=== PATIENT | female | born 1960 | race Caucasian/White ===

== ENCOUNTER 2017-04-20 05:55 | Emergency (ER) | payer OTHER ==
[~2017-04-20] VITALS: Ht 162.6 cm; Wt 80.0 kg
[~2017-04-20 05:55] MED LIST: ASPI325T PO; FAMO20 PO; LOVA20TA PO; [UNRECOGNIZED DRUG - CODE] PO
[2017-04-20 05:56] VITALS: BP 171/88; PULSE 82; RESP 16; TEMP 98; O2SAT 98
--- NOTE | 2017-04-20 06:24 | PD ---
HPI Chief Complaint: Back/ Neck Pain or Injury Time Seen by Provider: 06:20 Travel History International Travel<30 days: No Contact w/Intl Traveler<30days: No Traveled to known affect area: No History of Present Illness HPI Patient comes in complaining of low back muscle spasm that began yesterday while helping out at a baby shower. Patient denies any trauma, heavy lifting, loss or change in bowel or bladder, numbness or tingling anywhere, IV drug use, fevers, chest pain, shortness of breath, or radiation of pain. Patient states she stays in one spot left lateral aspect of her upper lumbar. Patient states she has this happen occasionally and is usually able get it under control with taking a couple Advil along with using heat pack. Patient states she tried this yesterday with no improvement of symptoms. Patient states she took one of her sisters Flexeril last night with no improvement of her symptoms. Patient states the spasm keep her awake all night. Denies anything making it worse. PFSH Past Medical History Medical History: Denies Significant Hx Diminished Hearing: No Tetanus Vaccination: > 5 Years Influenza Vaccination: No ?: Not Menopausal: Yes : 4 Para: 2 Miscarriage: 1 Past Surgical History Surgical History: No Previous Surgery Hysterectomy: Yes (1998) Social History Alcohol Use: No Tobacco Use: Yes (1/2 pack) Substance Use: No Allergies-Medications (Allergen,Severity, Reaction): Coded Allergies: No Known Allergies (Verified , 04/20/17) Reported Meds & Prescriptions Reported Meds & Active Scripts Active Robaxin (Methocarbamol) 500 Mg Tab 500 Mg PO Q8HR PRN Lovastatin 20 Mg Tab 20 Mg PO HS Reported Pepcid 20 Mg Tab (Famotidine) 20 Mg Tab 20 Mg PO DAILY Aspirin 325 mg (Aspirin) 325 Mg Tab 325 Mg PO DAILY 2 tabs as needed once a day Tension Headache Relief (Acetaminophen-Caffeine) 1 Tab Tab 2 Tab PO BID Review of Systems Except as stated in HPI: all other systems reviewed are Neg Physical Exam Narrative GENERAL: Well-developed, overly nourished, in no acute distress, and non-ill appearing. SKIN: Focused skin assessment warm and dry. HEAD: Atraumatic. Normocephalic. EYES: Pupils equal and round. EOMI. No scleral icterus. No injection or drainage. ENT: No nasal bleeding or discharge. Mucous membranes pink and moist. NECK: Trachea midline. Supple. No nuclear rigidity. CARDIOVASCULAR: No pedal edema. RESPIRATORY: No accessory muscle use. No respiratory distress. MUSCULOSKELETAL: No obvious deformities. No clubbing. No cyanosis. No edema. Full range of motion. No chest crepitus or midline lumbar or thoracic spine. Patient reports point tenderness left lateral lumbar perivertebral spinal muscles upper lumbar spine. NEUROLOGICAL: Awake and alert. No obvious cranial nerve deficits. Motor grossly within normal limits. Normal speech. PSYCHIATRIC: Appropriate mood and affect; insight and judgment normal. Data Data Last Documented VS Vital Signs Date Time Temp Pulse Resp B/P Pulse Ox O2 Delivery O2 Flow Rate FiO2 04/20/17 06:07 20 04/20/17 05:56 98.0 82 171/88 98 Room Air Orders Methocarbamol (Robaxin) (04/20/17 06:30) [facility] Medical Decision Making Medical Screen Exam Complete: Yes Emergency Medical Condition: Yes Differential Diagnosis Fracture, spasm, contusion, strain, other Narrative Course The patient presented complaining of back muscle spasm pain. There was no history of recent fall or trauma. There was no evidence to support genitourinary etiology. There is also no evidence to suggest vascular pathology such as AAA dissection. No fevers or other evidence to suspect infectious processes, abscess, osteomyelitis etc. The patients neurological exam is normal with normal motor and sensory. There is no saddle paresthesias reported and no bowel or bladder incontinence or retention. I suspect the pain is mechanical in nature. Clinical suspicion, plan of care and management was discussed with the patient. The patient was instructed to follow up with their health care provider. The patient was also instructed to return if the pain worsened, changed, or developed weakness or bowel or bladder trouble. The patient agreed with plan. Patient in no obvious distress upon re-evaluation. Patient was asked if they wanted to speak to my attending, which the patient did not wish to do at this time. Any questions/concerns in reference to patient diagnosis/condition discussed and clarified prior to patient's discharge. Reinforced sheer importance of close follow up with patient's primary physician or primary care clinic. Instructed patient to return to ED immediately, if symptoms return/ worsen. Pt showed understanding of above instructions. Further instructions and recommendations were detailed in discharge paperwork. Pt ambulated without difficulty out of ED at discharge. Diagnosis Primary Impression: Muscle spasm Patient Instructions: General Instructions, Muscle Spasm (ED) Additional Instructions: Follow-up with your primary care physician in 3-5 days for evaluation. Take all medication as prescribed. Use [id number] Tylenol and/or ibuprofen as needed for pain control. Follow instructions on the packaging. Return to the emergency department if symptoms get worse. Med/Other Pt SpecificInfo: Prescription(s) given Scripts Methocarbamol (Robaxin)500 Mg [id number] Mg PO Q8HR PRN (MUSCLE SPASM) #14 TAB Ref 0 Prov:Mae Chavarria MD 04/20/17 Disposition: 01 DISCHARGE HOME Condition: Stable Reese Hughes Apr 20, 2017 06:24
[2017-04-20] MEDS ORDERED: ROBA500T PO (06:25)
[2017-04-20] MEDS ORDERED: METHOCARBAMOL 500 MG TAB PO ONE (06:30)
== END 2017-04-20 06:31 | disposition home or self-care (01) ==
LOC: NEPD 05:55
DX: M62.838 Other muscle spasm (principal)
CPT/HCPCS: 99283

== ENCOUNTER 2017-04-23 18:15 | Emergency (ER) | payer OTHER ==
[~2017-04-23] VITALS: Ht 162.6 cm; Wt 78.0 kg
[~2017-04-23 18:15] MED LIST changes: +ROBA500T PO
[2017-04-23 18:17] VITALS: BP 173/80; PULSE 118; RESP 24; TEMP 97.8; O2SAT 98
--- NOTE | 2017-04-23 18:21 | PD ---
Physical Exam Narrative 56 y/o female here for evaluation of back pain. Seen here on 04/20 for evaluation of this issue but symptoms have worsened. Vital signs reviewed. Seen at triage desk. Awaiting bed placement. Data Data Last Documented VS Vital Signs Date Time Temp Pulse Resp B/P Pulse Ox O2 Delivery O2 Flow Rate FiO2 04/23/17 18:17 97.8 118 24 173/80 98 Room Air [facility] [place] Medical Record Reviewed: Yes Supervised Visit with JIE: Eric Newman Apr 23, 2017 18:21
--- NOTE | 2017-04-23 18:31 | PD ---
HPI . lower back pain x 3 days Chief Complaint: Musculoskeletal Complaint Time Seen by Provider: 18:29 Travel History International Travel<30 days: No Contact w/Intl Traveler<30days: No Traveled to known affect area: No History of Present Illness HPI 56-year-old female here with complaints of worsening lower back pain. Patient was recently here on April 20 with similar complaints. Apparently she was helping out at a baby shower and think she may have pulled something. She has been taking the Robaxin without much relief. Patient says that her pain is now wrapping around both sides of her lumbar spine in the paraspinal musculature. She rates the pain as 8/10. She denies any bowel or bladder dysfunction. She has no saddle anesthesia. She denies any recent injury or fall. She has no other complaints at this time. [facility] Past Medical History Diminished Hearing: No Menopausal: Yes : 4 Para: 2 Miscarriage: 1 Past Surgical History Hysterectomy: Yes (1998) Social History Alcohol Use: No Tobacco Use: Yes (1/2 pack) Substance Use: No Allergies-Medications (Allergen,Severity, Reaction): Coded Allergies: No Known Allergies (Verified , 04/23/17) Reported Meds & Prescriptions Reported Meds & Active Scripts Active Tramadol (Tramadol HCl) 50 Mg Tab 50 Mg PO Q8H PRN Robaxin (Methocarbamol) 500 Mg Tab 500 Mg PO Q8HR PRN Lovastatin 20 Mg Tab 20 Mg PO HS Reported Pepcid 20 Mg Tab (Famotidine) 20 Mg Tab 20 Mg PO DAILY Aspirin 325 mg (Aspirin) 325 Mg Tab 325 Mg PO DAILY 2 tabs as needed once a day Tension Headache Relief (Acetaminophen-Caffeine) 1 Tab Tab 2 Tab PO BID Review of Systems General / Constitutional: No: Fever Eyes: No: Visual changes HENT: No: Headaches Cardiovascular: No: Chest Pain or Discomfort Respiratory: No: Shortness of Breath Gastrointestinal: No: Abdominal Pain Genitourinary: No: Dysuria Musculoskeletal: Positive: Pain (lower back pain ) Skin: No Rash Neurologic: No: Weakness Psychiatric: No: Depression Endocrine: No: Polydipsia Hematologic/Lymphatic: No: Easy Bruising Physical Exam Narrative GENERAL: AAO x 3, no acute distress, Well-nourished, well-developed patient. SKIN: Warm and dry. No visible rashes or bruising. HEAD: Normocephalic and atraumatic. EYES: No scleral icterus. No injection or drainage. ENT: No nasal drainage noted. Mucous membranes pink. Airway patent. NECK: Supple, trachea midline. No JVD. CARDIOVASCULAR: Regular rate and rhythm without murmurs, gallops, or rubs. RESPIRATORY: Breath sounds equal bilaterally. No accessory muscle use. No rhonchi or rales. GASTROINTESTINAL: Abdomen soft, non-tender, nondistended. EXTREMITIES: No cyanosis or edema. BACK: Nontender without obvious deformity. some slight tenderness to left side paraspinal muscle lumbar NEURO: CN II-12 intact, mobile lounge driver strength normal b/l, UE and LE 5/5, no focal deficits, heel walk test normal PSYCH: AAO x 3, normal affect. Data Data Last Documented VS Vital Signs Date Time Temp Pulse Resp B/P Pulse Ox O2 Delivery O2 Flow Rate FiO2 04/23/17 18:17 97.8 118 24 173/80 98 Room Air Orders Orphenadrine Inj (Norflex Inj) (04/23/17 18:45) Ketorolac Inj (Toradol Inj) (04/23/17 18:45) Spine, Lumbar Comp W/Obliq (04/23/17 18:36) Urinalysis - C+S If Indicated (04/23/17 18:57) Tramadol (Ultram) (04/23/17 19:45) Labs Laboratory Tests Test 04/23/17 19:08 Urine Color YELLOW Urine Turbidity HAZY Urine pH 5.0 Urine Specific [place] 1.015 Urine Protein NEG mg/dL Urine Glucose (UA) NEG mg/dL Urine Ketones NEG mg/dL Urine Occult Blood SMALL Urine Nitrite NEG Urine Bilirubin NEG Urine Urobilinogen LESS THAN 2.0 MG/DL Urine Leukocyte Esterase NEG Urine RBC 1 /hpf Urine WBC 1 /hpf Urine Squamous Epithelial 4 /hpf Cells Urine Mucus FEW /lpf Microscopic Urinalysis Comment CULT NOT INDICATED MDM Medical Decision Making Medical Screen Exam Complete: Yes Emergency Medical Condition: Yes Medical Record Reviewed: Yes Differential Diagnosis lumbar strain, less likely spinal fracture, less likely cauda equina Narrative Course 56 yr old female here with c/o lower back pain that is worsening. I know this patient from the [facility] and she does not complain about many things. She is in tears from her pain. I will check an xray as she does report pain deep within her spine. R/O fracture. UA also ordered. Her HR is slightly elevated and likely related to her pain and anxiety from this pain. We will follow it through her visit. I have discussed the case with Virgil Hughes PA-C, who will determine her disposition. Scripts Tramadol 50 Mg Tab50 Mg PO Q8H PRN (PAIN GREATER THAN 7) #7 TAB Ref 0 Prov:Carolyne Field DO 04/23/17 Methocarbamol (Robaxin)500 Mg [id number] Mg PO Q8HR PRN (MUSCLE SPASM) #14 TAB Ref 0 Prov:Carolyne Field DO 04/23/17 Condition: Stable Lillian Jean Apr 23, 2017 18:31
[2017-04-23] MEDS ORDERED: KETOROLAC TROMETHAMINE 60 MG/2 ML (IM) VIAL IM ONE (18:45)
[2017-04-23] MEDS ORDERED: ORPHENADRINE INJ 60 MG/2 ML AMP IM ONE (18:45)
--- NOTE | 2017-04-23 19:15 | RADRPT ---
EXAM DATE/TIME: 04/23/2017 18:59 [place] COMPARISON: No previous studies available for comparison. INDICATIONS : Low back pain with spasms, denies injury MEDICAL HISTORY : Hypertension. SURGICAL HISTORY : None. ENCOUNTER: [facility] ACUITY: 4 - 6 days PAIN SCORE: 3/10 LOCATION: Lumbar spine FINDINGS: There are five non-rib bearing vertebral bodies. The vertebral bodies are in normal alignment withou t evidence of subluxation or scoliosis. The disc spaces are maintained. The posterior elements are intact without evidence of spondylolysis. The pedicles are intact. Bony mineralization is normal. No fracture is identified. CONCLUSION: Degenerative changes are noted as above. Carlos Aquino MD on April 23, 2017 at 19:13 Board Certified Radiologist. This report was verified electronically.
[2017-04-23 19:22] LABS: BLOOD, URINE SMALL (NEG); COMMENT (UR) CULT NOT INDICATED; CULTURE IF INDICATED CULT NOT INDICATED; GLUCOSE,URINE NEG (NEG); KETONE, URINE NEG (NEG); MUCUS URINE FEW /lpf (OCC); NITRITE,URINE NEG (NEG); SQUAMOUS EPITHELIAL CELL URINE 4 /hpf (0-5); URINE COLOR YELLOW (YELLW/STRAW)
--- NOTE | 2017-04-23 19:34 | PD ---
Physical Exam Narrative Patient was signed out to me by Lillian Acosta PA-C pending x-ray and laboratory results. Please see her documentation for full H&P. Data Data Last Documented VS Vital Signs Date Time Temp Pulse Resp B/P Pulse Ox O2 Delivery O2 Flow Rate FiO2 04/23/17 18:17 97.8 118 24 173/80 98 Room Air Orders Orphenadrine Inj (Norflex Inj) (04/23/17 18:45) Ketorolac Inj (Toradol Inj) (04/23/17 18:45) Spine, Lumbar Comp W/Obliq (04/23/17 18:36) Urinalysis - C+S If Indicated (04/23/17 18:57) Tramadol (Ultram) (04/23/17 19:45) Labs Laboratory Tests Test 04/23/17 19:08 Urine Color YELLOW Urine Turbidity HAZY Urine pH 5.0 Urine Specific [place] 1.015 Urine Protein NEG mg/dL Urine Glucose (UA) NEG mg/dL Urine Ketones NEG mg/dL Urine Occult Blood SMALL Urine Nitrite NEG Urine Bilirubin NEG Urine Urobilinogen LESS THAN 2.0 MG/DL Urine Leukocyte Esterase NEG Urine RBC 1 /hpf Urine WBC 1 /hpf Urine Squamous Epithelial 4 /hpf Cells Urine Mucus FEW /lpf Microscopic Urinalysis Comment CULT NOT INDICATED MDM Supervised Visit with JIE: No Interpretation(s) Lumbar spine x-rays read by the radiologist show: Degenerative changes are noted. Narrative Course Patient in no obvious distress upon re-evaluation. All pertinent laboratory/ Radiology result(s) discussed with patient/family. Patient was asked if they wanted to speak to my attending, which the patient did not wish to do at this time. Any questions/concerns in reference to patient diagnosis/condition discussed and clarified prior to patient's discharge. Reinforced sheer importance of close follow up with patient's primary physician or primary care clinic. Instructed patient to return to ED immediately, if symptoms return/ worsen. Pt showed understanding of above instructions. Further instructions and recommendations were detailed in discharge paperwork. Pt ambulated without difficulty out of ED at discharge. Diagnosis Primary Impression: Low back pain Qualified Code: M54.5 - Acute low back pain without sciatica, unspecified back pain laterality Referrals: [facility] Patient Instructions: Acute Low Back Pain (ED), General Instructions Additional Instruction: Follow-up with your primary care physician in one to 3 days for reevaluation. Take all medication as prescribed. Return to the emergency department if symptoms get worse. Med/Other Pt SpecificInfo: Prescription(s) given Scripts Tramadol 50 Mg Tab50 Mg PO Q8H PRN (PAIN GREATER THAN 7) #7 TAB Ref 0 Prov:Carolyne Field DO 04/23/17 Methocarbamol (Robaxin)500 Mg [id number] Mg PO Q8HR PRN (MUSCLE SPASM) #14 TAB Ref 0 Prov:Carolyne Field DO 04/23/17 Disposition: 01 DISCHARGE HOME Condition: Stable Reese Hughes Apr 23, 2017 19:34
[2017-04-23] MEDS ORDERED: TRAM50TA PO (19:40)
[2017-04-23] MEDS ORDERED: ROBA500T PO (19:40)
[2017-04-23] MEDS ORDERED: traMADol HCL 50 MG TAB PO ONE (19:45)
== END 2017-04-23 20:04 | disposition home or self-care (01) ==
LOC: NEPK 18:15
DX: M54.5 Low back pain (principal)
CPT/HCPCS: 72110; 81001; 96372; 99284; J1885; J2360

== ENCOUNTER 2018-02-05 16:51 | Emergency (ER) | payer SELFPAY ==
[~2018-02-05] VITALS: Ht 162.6 cm; Wt 73.0 kg
[~2018-02-05 16:51] MED LIST changes: +TRAM50TA PO
[2018-02-05 17:09] VITALS: BP 139/72; PULSE 102; RESP 17; TEMP 98.4; O2SAT 96
--- NOTE | 2018-02-05 17:43 | PD ---
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 Patient denies any known trauma, loss or change in bowel or bladder, numbness or tingling anywhere, fevers, history of IV drug use, chest pain, shortness of breath, nausea, vomiting, or weakness. Patient reports pain radiates across her back and feels similar to previous muscle spasm. Patient reports tried taking Robaxin for this yesterday as well as the Xanax that her neighbor gave her with no improvement of symptoms. Patient has tried resting as well as alternating between heat and ice with no improvement of symptoms. Pain is worse with certain movement. Severity mild. PFSH Past Medical History Diminished Hearing: No Musculoskeletal: Yes (Back pain) Menopausal: Yes : 4 Para: 2 Miscarriage: 1 Past Surgical History Hysterectomy: Yes (1998) Social History Alcohol Use: No Tobacco Use: Yes Substance Use: No Allergies-Medications (Allergen,Severity, Reaction): Coded Allergies: No Known Allergies (Verified , 04/23/17) Reported Meds & Prescriptions Reported Meds & Active Scripts Active Mobic (Meloxicam) 7.5 Mg Tab 7.5 Mg PO DAILY 7 Days Orphenadrine CR (Orphenadrine Citrate) 100 Mg Tab 100 Mg PO Q12HR PRN Review of Systems Except as stated in HPI: all other systems reviewed are Neg Physical Exam Narrative GENERAL: Well-developed, overly nourished, in no acute distress, and non-ill appearing. SKIN: Focused skin assessment warm and dry. HEAD: Atraumatic. Normocephalic. EYES: Pupils equal and round. EOMI. No scleral icterus. No injection or drainage. ENT: No nasal bleeding or discharge. Mucous membranes pink and moist. NECK: Trachea midline. Supple. No nuclear rigidity. CARDIOVASCULAR: Dorsal pulses 2+, intact, and equal bilaterally. Capillary refill less than 2 seconds. RESPIRATORY: No accessory muscle use. No respiratory distress. GASTROINTESTINAL: Abdomen soft, non-tender, nondistended, and no guarding. Hepatic and splenic margins not palpable. No pulsatile mass. MUSCULOSKELETAL: No obvious deformities. No clubbing. No cyanosis. No edema. Full range of motion. Hip: FROM and equal BL with passive flexion, extension, Abduction, Adduction, and internal/external rotation. Pulses equal BL distal to injury. Capillary refill less than 2 seconds distal to injury and equal BL. FROM distal to injury and equal BL. Strength distal to injury equal BL. NV intact distal to injury and equal BL. Plantar flexion and dorsal flexion equal BL. Dorsal pulses equal BL. Sensation equal BL 1st web space. No crepitus or tenderness over lumbar thoracic spine. Patient reports tenderness palpation over the left lateral upper lumbar muscles. No crepitus. Straight leg test negative bilaterally. Normal gait. NEUROLOGICAL: Awake and alert. No obvious cranial nerve deficits. Motor grossly within normal limits. Normal speech. PSYCHIATRIC: Appropriate mood and affect; insight and judgment normal. Data Data Last Documented VS Vital Signs Date Time Temp Pulse Resp B/P (MAP) Pulse Ox O2 Delivery O2 Flow Rate FiO2 02/05/18 17:09 98.4 102 17 139/72 (94) 96 Orders Orders Orphenadrine Inj (Norflex Inj) (02/05/18 17:45) Tramadol (Ultram) (02/05/18 17:45) Ed Discharge Order (02/05/18 17:46) [facility] Medical Decision Making Medical Screen Exam Complete: Yes Emergency Medical Condition: Yes Differential Diagnosis Fracture, strain, contusion, spasm Narrative Course The patient presented complaining of back pain. There was no history of recent fall or trauma. There was no evidence to support genitourinary etiology. There is also no evidence to suggest vascular pathology such as AAA dissection. No fevers or other evidence to suspect infectious processes, abscess, osteomyelitis etc. The patients neurological exam is normal with normal motor and sensory. There is no saddle paresthesias reported and no bowel or bladder incontinence or retention. I suspect the pain is mechanical in nature. Clinical suspicion, plan of care and management was discussed with the patient. The patient was instructed to follow up with their health care provider. The patient was also instructed to return if the pain worsened, changed, or developed weakness or bowel or bladder trouble. The patient agreed with plan. Patient in no obvious distress upon re-evaluation. Patient was asked if they wanted to speak to my attending, which the patient did not wish to do at this time. Any questions/concerns in reference to patient diagnosis/condition discussed and clarified prior to patient's discharge. Reinforced sheer importance of close follow up with patient's primary physician or primary care clinic. Instructed patient to return to ED immediately, if symptoms return/ worsen. Patient showed understanding of above instructions. Further instructions and recommendations were detailed in discharge paperwork. Patient ambulated without difficulty out of ED at discharge. Diagnosis Primary Impression: Muscle spasm Referrals: [facility] Patient Instructions: Back Pain (ED), General Instructions, Muscle Spasm (ED) Additional Instructions: Follow-up with your primary care physician in 3-5 days for reevaluation. Take all medication as prescribed. Return to the emergency department if symptoms get worse. Med/Other Pt SpecificInfo: Prescription(s) given Scripts Meloxicam (Mobic) 7.5 Mg Tab 7.5 MG PO DAILY for Pain for 7 Days, #7 TAB 0 Refills Prov: Carolyne Field DO 02/05/18 Orphenadrine ER 12 HR (Orphenadrine CR) 100 Mg Tab 100 MG PO Q12HR Y for MUSCLE SPASM, #10 TAB 0 Refills Prov: Carolyne Field DO 02/05/18 Disposition: 01 DISCHARGE HOME Condition: Stable Reese Hughes February 05, 2018 17:43
[2018-02-05] MEDS ORDERED: ORPH100T2 PO (17:44)
[2018-02-05] MEDS ORDERED: MOBI7.5T PO (17:44)
[2018-02-05] MEDS ORDERED: traMADol HCL 50 MG TAB PO ONE (17:45)
[2018-02-05] MEDS ORDERED: ORPHENADRINE INJ 60 MG/2 ML AMP IM ONE (17:45)
== END 2018-02-05 18:24 | disposition home or self-care (01) ==
LOC: NEPE 16:51
DX: M62.830 Muscle spasm of back (principal); Z79.899 Other long term (current) drug therapy; Z72.0 Tobacco use
CPT/HCPCS: 96372; 99283; J2360